=== PATIENT | female | born 1990 | race African-American/Black ===

== ENCOUNTER 2017-03-23 14:37 | Emergency (ER) | payer MEDICAID ==
[~2017-03-23] VITALS: Ht 160 cm; Wt 77.0 kg
[2017-03-23 14:40] VITALS: BP 123/70; PULSE 78; RESP 12; TEMP 98.2; O2SAT 98
[2017-03-23] MEDS ORDERED: SODIUM CHLOR 0.9% 1000 ML INJ 1,000 ML IV SCH (17:31)
--- NOTE | 2017-03-23 17:37 | PD ---
HPI Chief Complaint: Related Problem Time Seen by Provider: 17:03 Travel History International Travel<30 days: No Contact w/Intl Traveler<30days: No Traveled to known affect area: No History of Present Illness HPI 26-year-old female , approximately 8 weeks , here for evaluation of nausea, vomiting, and decreased appetite. Symptoms have been going on for last 4 days. Patient reports that she is unable to eat or drink anything because of her symptoms. She occasionally has epigastric, lower abdominal, and right flank discomfort described as cramping. No fevers or chills. Emesis is bilious, nonbloody. History of umbilical hernia repair. No vaginal bleeding or discharge. She has her first CAN COVERER appointment scheduled for this coming Sunday. She reports a 10 pound weight loss is becoming . [facility] Past Medical History ?: LMP: 01/30/17 Social History Tobacco Use: No Allergies-Medications (Allergen,Severity, Reaction): Coded Allergies: NSAIDS (Non-Steroidal Anti-Inflamma (Verified Allergy, Severe, Anaphylaxis , 03/23/17) Reported Meds & Prescriptions Reported Meds & Active Scripts Active Diclegis (Doxylamine-Pyridoxine) 10-10 Mg Tab 1 Tab PO TID Review of Systems Except as stated in HPI: all other systems reviewed are Neg Physical Exam Narrative GENERAL: Well-developed, well-nourished, comfortable, no apparent distress. SKIN: Focused skin assessment warm/dry. HEAD: Atraumatic. Normocephalic. EYES: Pupils equal and round. No scleral icterus. No injection or drainage. ENT: Mucous membranes pink and dry. NECK: Trachea midline. No JVD. CARDIOVASCULAR: Regular rate and rhythm. RESPIRATORY: No accessory muscle use. Clear to auscultation. Breath sounds equal bilaterally. GASTROINTESTINAL: Abdomen soft, nondistended. Mild epigastric tenderness. No suprapubic tenderness. No peritoneal signs. Normal bowel sounds. MUSCULOSKELETAL: No obvious deformities. No clubbing. No cyanosis. No edema. NEUROLOGICAL: Awake and alert. No obvious cranial nerve deficits. Motor grossly within normal limits. Normal speech. PSYCHIATRIC: Appropriate mood and affect; insight and judgment normal. Data Data Last Documented VS Vital Signs Date Time Temp Pulse Resp B/P (MAP) Pulse Ox O2 Delivery O2 Flow Rate FiO2 03/23/17 20:21 03/23/17 17:57 75 18 100 03/23/17 14:40 98.2 Orders Orders Beta Hcg (Quant/Titer) (03/23/17 17:31) Complete Blood Count With Diff (03/23/17 17:31) Comprehensive Metabolic Panel (03/23/17 17:31) Urinalysis - C+S If Indicated (03/23/17 17:31) Iv Access Insert/Monitor (03/23/17 17:31) Ecg Monitoring (03/23/17 17:31) Oximetry (03/23/17 17:31) Ondansetron Inj (Zofran Inj) (03/23/17 17:45) Sodium Chlor 0.9% 1000 Ml Inj (Ns 1000 M (03/23/17 17:31) Sodium Chloride 0.9% Flush (Ns Flush) (03/23/17 17:45) Ed Urine Pregnancytest Poc (03/23/17 17:35) Us Pelvis (Ques Preg/Ectopic) (03/23/17 ) Ed Discharge Order (03/23/17 20:11) Labs Laboratory Tests Test 03/23/17 17:45 03/23/17 17:50 Urine Color YELLOW Urine Turbidity CLEAR Urine pH 5.5 Urine Specific [place] 1.021 Urine Protein TRACE mg/dL Urine Glucose (UA) NEG mg/dL Urine Ketones 40 mg/dL Urine Occult Blood NEG Urine Nitrite NEG Urine Bilirubin NEG Urine Urobilinogen LESS THAN 2.0 MG/DL Urine Leukocyte Esterase NEG Urine WBC 1 /hpf Urine Squamous Epithelial Cells <1 /hpf Urine Mucus FEW /lpf Microscopic Urinalysis Comment CULT NOT INDICATED White Blood Count 5.5 TH/MM3 Red Blood Count 4.56 MIL/MM3 Hemoglobin 12.7 GM/DL Hematocrit 36.9 % Mean Corpuscular Volume 81.1 FL Mean Corpuscular Hemoglobin 27.8 PG Mean Corpuscular Hemoglobin Concent 34.3 % Red Cell Distribution Width 14.5 % Platelet Count 227 TH/MM3 Mean Platelet Volume 7.6 FL Neutrophils (%) (Auto) 55.9 % Lymphocytes (%) (Auto) 37.1 % Monocytes (%) (Auto) 6.0 % Eosinophils (%) (Auto) 0.5 % Basophils (%) (Auto) 0.5 % Neutrophils # (Auto) 3.1 TH/MM3 Lymphocytes # (Auto) 2.0 TH/MM3 Monocytes # (Auto) 0.3 TH/MM3 Eosinophils # (Auto) 0.0 TH/MM3 Basophils # (Auto) 0.0 TH/MM3 CBC Comment DIFF FINAL Differential Comment Blood Urea Nitrogen 6 MG/DL Creatinine 0.52 MG/DL Random Glucose 67 MG/DL Total Protein 8.0 GM/DL Albumin 3.9 GM/DL Calcium Level 9.0 MG/DL Alkaline Phosphatase 49 U/L Aspartate Amino Transf (AST/SGOT) 11 U/L Alanine Aminotransferase (ALT/SGPT) 11 U/L Total Bilirubin 0.6 MG/DL Sodium Level 134 MEQ/L Potassium Level 3.8 MEQ/L Chloride Level 103 MEQ/L Carbon Dioxide Level 21.9 MEQ/L Anion Gap 9 MEQ/L Estimat Glomerular Filtration Rate 172 ML/MIN Human Chorionic Gonadotropin, Quant 14498 MIU/ML [facility] Medical Decision Making Medical Screen Exam Complete: Yes Emergency Medical Condition: Yes Differential Diagnosis Hyperemesis gravidarum, metabolic abnormality, , ectopic , UTI , pyelonephritis, nephrolithiasis, acute intra-abdominal/surgical process unlikely Narrative Course Vital signs show heart rate 78, blood pressure 123/70, pulse ox 98% on room air , oral temp of 98.2F. CBC is unremarkable. CMP is unremarkable. Beta hCG is 58,777. UA shows 40 ketones, few mucus, not suggestive of UTI, no bacteria. Pelvic ultrasound: CONCLUSION: Positive intrauterine with positive heart tones. Patient was given a liter of normal saline IV and IV Zofran and is feeling much improved. She is stable for discharge home with outpatient follow-up with her CAN COVERER physician this Sunday as scheduled. She was informed on when to return to the emergency department. She verbalizes understanding and agreement with plan. Diagnosis Primary Impression: Qualified Codes: Z3A.01 - Less than 8 weeks gestation of Additional Impression: Nausea and vomiting during Referrals: Property Utilization Manager 3 days Additional Instructions: Follow-up with your CAN COVERER physician on Sunday as scheduled. Return to the emergency department for worsening symptoms or any other concerns. Scripts Doxylamine-Pyridoxine (Diclegis) 10-10 Mg Tab 1 TAB PO TID for Nausea, #15 Prov: Elijah العلي MD 03/23/17 Disposition: DISCHARGE HOME Condition: Stable Elijah العلي MD Mar 23, 2017 17:37
[2017-03-23] MEDS ORDERED: ONDANSETRON HCL 4 MG/2 ML VIAL IVP ONE (17:45)
[2017-03-23] MEDS ORDERED: SODIUM CHLORIDE 0.9% FLUSH 10 ML FLUSH IV FLUSH PRN (17:45)
[2017-03-23 17:57] VITALS: BP 115/71; PULSE 75; RESP 18; O2SAT 100
[2017-03-23 18:08] LABS: AUTOMATED NEUTROPHIL # 3.1 TH/MM3 (1.8-7.7); BASOPHIL % 0.5 % (0.0-2.0); EOSINOPHIL % 0.5 % (0.0-4.0); HEMATOCRIT 36.9 % (35.0-46.0); HEMO FLAGS DIFF FINAL; LYMPH % 37.1 % (9.0-44.0); MEAN CELL VOLUME 81.1 FL (80.0-100.0); MEAN CORPUSCULAR HEMOGLOBIN 27.8 PG (27.0-34.0); MEAN CORPUSCULAR HGB CONC 34.3 % (32.0-36.0); NEUT % 55.9 % (16.0-70.0); PLATELET COUNT 227 TH/MM3 (150-450); RED BLOOD COUNT 4.56 MIL/MM3 (4.00-5.30); RED CELL DISTRIBUTION WIDTH 14.5 % (11.6-17.2); WHITE BLOOD COUNT 5.5 TH/MM3 (4.0-11.0)
[2017-03-23 18:23] LABS: ALT (GPT) 11 U/L (10-53); ANION GAP 9 MEQ/L (5-15); AST (GOT) 11 U/L (15-37); BICARBONATE 21.9 MEQ/L (21.0-32.0); BLOOD UREA NITROGEN 6 MG/DL (7-18); CHLORIDE 103 MEQ/L (98-107); GLOMERULAR FILTRATION RATE 172 ML/MIN (>89); POTASSIUM 3.8 MEQ/L (3.5-5.1); SODIUM (NA) 134 MEQ/L (136-145)
[2017-03-23 18:24] LABS: BLOOD, URINE NEG (NEG); COMMENT (UR) CULT NOT INDICATED; CULTURE IF INDICATED CULT NOT INDICATED; GLUCOSE,URINE NEG (NEG); KETONE, URINE 40 mg/dL (NEG); MUCUS URINE FEW /lpf (OCC); NITRITE,URINE NEG (NEG); PH, URINE 5.5 (5.0-8.5); SQUAMOUS EPITHELIAL CELL URINE <1 /hpf (0-5); URINE COLOR YELLOW (YELLW/STRAW)
[2017-03-23 18:40] LABS: ALKALINE PHOSPHATASE 49 U/L (45-117); BETA HCG QUANT 58777 MIU/ML (0-5); TOTAL BILIRUBIN ADULT 0.6 MG/DL (0.2-1.0)
--- NOTE | 2017-03-23 19:54 | RADRPT ---
EXAM DATE/TIME: 03/23/2017 19:16 [place] COMPARISON: No previous studies available for comparison. INDICATIONS : Nausea and vomiting. LAB(S): Beta-hC MEDICAL HISTORY : . SURGICAL HISTORY : None. ENCOUNTER: Initial ACUITY: 1 week PAIN SCORE: 0/10 LOCATION: Bilateral pelvis MEASUREMENTS: UTERUS: 12.4 x 6.6 x 4.8 cm ENDOMETRIAL STRIPE: 13 mm RIGHT OVARY: 2.6 x 1.5 x 1.7 cm LEFT OVARY: 4.3 x 3.1 x 3.0 cm FREE FLUID: CROWN RUMP LENGTH: 1.1 cm = 7 WKS 1 DAYS FHR: 148 BPM FINDINGS: UTERUS: The myometrium has homogeneous echotexture without mass. There is a oval collection within the endome trial cavity with a positive crown-rump length of 9 mm corresponding with a 6 week 6 day gestation. Positive heart tones were noted at 146 beats per minute. Gestational sac measures 2.9 x 3.1 x 1.3 cm corresponding to 7 week one day gestation. RIGHT OVARY: Ovary contains no mass or significant cystic lesion. LEFT OVARY: Ovary contains no mass.One hypoechoic cyst measuring 2.2 x 1.9 cm possible corpus luteal cyst MISCELLANEOUS: No free fluid. CONCLUSION: Positive intrauterine with positive heart tones. Montez Cervantes MD on March 23, 2017 at 19:50 Board Certified Radiologist. This report was verified electronically.
[2017-03-23] MEDS ORDERED: DOXY10TA PO (20:11)
== END 2017-03-23 20:21 | disposition home or self-care (01) ==
LOC: NEPD 14:37
DX: O21.9 Vomiting of pregnancy, unspecified (principal); Z3A.01 Less than 8 weeks gestation of pregnancy; Z79.899 Other long term (current) drug therapy; Z34.91 Encounter for supervision of normal pregnancy, unspecified, first trimester
CPT/HCPCS: 76700; 80053; 81001; 84702; 84703; 85025; 96374; 99285; J2405; J7030